=== PATIENT | male | born 1970 | race Caucasian/White ===

== ENCOUNTER → 2020-11-19 | Outpatient (CLI) | payer BC ==
[~2020-11-19] MED LIST: PERCOCET 5-3251 EACH PO; SUBOXONE 12 MG1 EACH SL
== END | disposition home or self-care (01) ==
LOC: COVID19 13:45
PROVIDERS: ATTEND Surgery
DX: Z01.818 Encounter for other preprocedural examination (principal); Z20.822 Contact with and (suspected) exposure to COVID-19

== ENCOUNTER → 2020-11-23 | Day surgery (SDC) | payer BC ==
[~2020-11-23] VITALS: Ht 177.8 cm; Wt 77.1 kg
[2020-11-23 07:33] VITALS: BP 139/87
[2020-11-23 08:23] VITALS: BP 109/71
[2020-11-23 08:39] VITALS: BP 120/95
[2020-11-23 08:53] VITALS: BP 127/87
== END | disposition home or self-care (01) ==
LOC: SDC 11-19 08:45
PROVIDERS: ATTEND Surgery
DX: D48.1 Neoplasm of uncertain behavior of connective and other soft tissue (principal); L72.0 Epidermal cyst; I10 Essential (primary) hypertension; F17.210 Nicotine dependence, cigarettes, uncomplicated; Z96.641 Presence of right artificial hip joint; Z79.899 Other long term (current) drug therapy

== ENCOUNTER 2023-10-12 12:11 | Emergency (ER) | payer BC ==
[~2023-10-12] VITALS: Ht 165.1 cm; Wt 76.2 kg
== END 2023-10-12 14:10 | disposition home or self-care (01) ==
LOC: ED 12:11
DX: T80.211A Bloodstream infection due to central venous catheter, initial encounter (principal); Z88.6 Allergy status to analgesic agent; Z88.0 Allergy status to penicillin; Z88.8 Allergy status to other drugs, medicaments and biological substances; Z91.040 Latex allergy status; Z96.653 Presence of artificial knee joint, bilateral; Z98.890 Other specified postprocedural states; Z87.891 Personal history of nicotine dependence

== ENCOUNTER → 2023-10-13 | Outpatient (CLI) | payer BC ==
[2023-10-13 10:15] VITALS: BP 133/71
== END | disposition home or self-care (01) ==
LOC: PICC 09:03
PROVIDERS: ATTEND Internal Medicine
DX: L02.11 Cutaneous abscess of neck (principal); Z96.651 Presence of right artificial knee joint; Z96.652 Presence of left artificial knee joint; Z98.890 Other specified postprocedural states